=== PATIENT | female | born 1930 | race Caucasian/White ===

== ENCOUNTER 2018-10-14 21:43 | Emergency (ER) | payer MEDICARE, BC ==
[~2018-10-14] VITALS: Ht 162.6 cm; Wt 48.9 kg
[~2018-10-14 21:43] MED LIST: DIAZ5TAB4 PO; GUAI600T45 PO; LEVO100T PO; LOSA50TA64 PO; LOVA20TA2 PO; WARF-55 PO
[2018-10-14 23:10] VITALS: BP 124/68
[2018-10-16] MEDS ORDERED: TRAM50TA2 PO (08:57)
== END 2018-10-14 23:13 | disposition home or self-care (01) ==
LOC: ER 21:44
DX: S62.292A Other fracture of first metacarpal bone, left hand, initial encounter for closed fracture (principal); I10 Essential (primary) hypertension; Z86.718 Personal history of other venous thrombosis and embolism; Z85.3 Personal history of malignant neoplasm of breast; Z98.890 Other specified postprocedural states; Z79.01 Long term (current) use of anticoagulants; Z79.899 Other long term (current) drug therapy; W01.198A Fall on same level from slipping, tripping and stumbling with subsequent striking against other object, initial encounter; Y93.01 Activity, walking, marching and hiking; Y92.89 Other specified places as the place of occurrence of the external cause; Y99.8 Other external cause status
CPT/HCPCS: 29125; 73130; 99284